=== PATIENT | female | born 1990 | race African-American/Black ===

== ENCOUNTER 2018-08-20 22:23 | Emergency (ER) | payer OTHER ==
[~2018-08-20] VITALS: Ht 152.4 cm; Wt 65.8 kg
--- NOTE | 2018-08-21 00:18 | Diagnostic Imaging Report ---
EXAM: First trimester ultrasound INDICATION: 2 months with vaginal bleeding COMPARISON: None TECHNIQUE: Transvaginal sonographic images of the pelvis were obtained using dejesus scale and color doppler. Transvaginal imaging was medically necessary to better evaluate the gestational sac. G 2P1A 0 LMP June 11, 2018 Clinical gestational age: 10w0d FINDINGS: UTERUS: 10.5 x 6.6 x 6.4 cm, anteverted Normal appearance of the cervix. No uterine masses. GESTATIONAL SAC: The gestational sac is irregular in appearance with mean gestational sac measuring 1.5 cm, which would be consistent with a 5 week and 5 day . Surrounding subchorionic hematoma. The gestational sac is near the lower uterine segment. YOLK SAC: Abnormal size of the yolk sac in comparison to the gestational sac. EMBRYO/FETUS: Not visualized RIGHT OVARY: 4.1 x 2 x 2.6 cm No abnormal cysts or masses. LEFT OVARY: Nonvisualized CUL-DE-SAC: No free fluid. IMPRESSION: Findings concerning for anembryonic and pending miscarriage including irregular gestational sac which is 5 weeks smaller than expected based on last LMP, no pole visualized, subchorionic hematoma and low position of gestational sac near the lower uterine segment. Recommend following beta hCG trend and transvaginal imaging as clinically indicated. Signed by: Dr. Indira Cyr M.D. on 08/21/2018 12:14 AM
== END 2018-08-21 00:45 | disposition home or self-care (01) ==
LOC: FSED 22:23
DX: O20.9 Hemorrhage in early pregnancy, unspecified (principal); O20.0 Threatened abortion
CPT/HCPCS: 36415; 76817; 80048; 81003; 81025; 84702; 85025; 99283